=== PATIENT | male | born 1990 | race Caucasian/White ===

== ENCOUNTER 2020-08-19 15:25 | Emergency (ER) | payer OTHER ==
[2020-08-19 16:05] LABS: RED BLOOD COUNT 4.92 M/UL (4.20-5.50); WHITE BLOOD COUNT 12.6 K/UL (4.5-11.0)
[2020-08-19 16:24] LABS: BUN/CREATININE RATIO 16 (0-10)
[2020-08-19] MEDS ORDERED: IBUPROFEN800 MG PO ×2 (19:11→22:08)
[2020-08-19] MEDS ORDERED: ZOFRAN ODT 4 MG4 MG PO ×2 (19:11→22:08)
[2020-08-19] MEDS ORDERED: OMNICEF 300 MG300 MG PO (19:11)
[2020-08-19] MEDS ORDERED: BENTYL 10MG CAP10 MG PO (22:08)
[2020-09-03] MEDS ORDERED: HYDROCODON-ACE1 EAC4 PO (09:06)
[2020-09-03] MEDS ORDERED: COLACE100 MG PO (09:06)
== END 2020-08-19 22:21 | disposition home or self-care (01) ==
LOC: ER1 15:25
PROVIDERS: Emergency Medicine
DX: A08.4 Viral intestinal infection, unspecified (principal)
CPT/HCPCS: 76705; 80053; 81001; 83690; 85025; 96374; 96375; 99284; J1885; J2270; J2405; J7030

== ENCOUNTER → 2020-08-24 | Outpatient (CLI) | payer OTHER ==
[~2020-08-24] MED LIST: BENTYL 10MG CAP10 MG PO; COLACE100 MG PO; HYDROCODON-ACE1 EAC4 PO; IBUPROFEN800 MG PO; OMNICEF 300 MG300 MG PO; ZOFRAN ODT 4 MG4 MG PO
== END ==
LOC: NM 10:46
DX: R10.11 Right upper quadrant pain (principal); K83.9 Disease of biliary tract, unspecified
CPT/HCPCS: 78226; A9537

== ENCOUNTER → 2020-09-03 | Day surgery (SDC) | payer OTHER | END | disposition home or self-care (01) | LOC: OR 05:59 | DX: K80.10 Calculus of gallbladder with chronic cholecystitis without obstruction (principal); K82.8 Other specified diseases of gallbladder; R94.8 Abnormal results of function studies of other organs and systems; F32.9 Major depressive disorder, single episode, unspecified; E78.49 Other hyperlipidemia; E53.8 Deficiency of other specified B group vitamins; E55.9 Vitamin D deficiency, unspecified; Z88.0 Allergy status to penicillin; Z88.1 Allergy status to other antibiotic agents | CPT/HCPCS: J1100; J1885; J2001; J2250; J2405; J2704; J2710; J3010; J7030; J7120 ==